=== PATIENT | female | born 1930 | race Caucasian/White ===

== ENCOUNTER 2016-08-17 09:07 | Inpatient (IN) | payer MEDICARE ==
[~2016-08-17] VITALS: Ht 160 cm; Wt 42.5 kg
[~2016-08-17 09:07] MED LIST: ALEVE 220MG220 MG PO; ARICEPT10 MG PO; ASPIRIN 81M81 MG/TA2 PO; B-12 100 MCG PO; COZAAR 50MG50 MG/TAB PO; MELATONIN1 MG PO; MICARDIS40 MG PO; MIRALAX PA17 GM/Dose PO; NAMENDA5 MG PO; SYNTHROID0.088 MG/T PO
[2016-08-17] MEDS ORDERED: ALEVE 220MG220 MG PO (09:45)
[2016-08-17] MEDS ORDERED: KEPPRA 500MG500 MG PO (09:46)
[2016-08-17] MEDS ORDERED: ASPIRIN E.C. 8181 MG PO (09:46)
[2016-08-17] MEDS ORDERED: COLACE 100100 MG/CAP PO (09:46)
[2016-08-17] MEDS ORDERED: COZAAR 50MG50 MG/TAB PO (09:47)
[2016-08-17] MEDS ORDERED: SYNTHROID0.1 MG/TAB PO (09:47)
[2016-08-17] MEDS ORDERED: NAMENDA5 MG PO (09:47)
[2016-08-17] MEDS ORDERED: PLAVIX 75MG TAB75 MG PO (09:47)
[2016-08-17] MEDS ORDERED: PROTONIX 40MG T40 MG PO (09:47)
[2016-08-17] MEDS ORDERED: MIRALAX PA17 GM/Dose PO (09:48)
[2016-08-17 09:55] LABS: MEAN CELL VOLUME 100 fl (80.0-100.0); MEAN CORPUSCULAR HGB CONC 33 g/dl (33.0-37.0); MEAN PLATELET VOLUME 10.9 fl (7.4-10.4); PLATELET COUNT 108 K/mm3 (130-400); RED BLOOD COUNT 3.32 M/mm3 (4.10-5.30); WHITE BLOOD COUNT 3.3 K/mm3 (4.8-10.8)
[2016-08-17 09:57] LABS: ADD PATHOLOGY DIFF REVIEW NO; HEMATOCRIT 33.1 % (37.0-47.0); HEMOGLOBIN 10.8 g/dl (12.5-16.0); MEAN CORPUSCULAR HEMOGLOBIN 33 pg (27.0-31.0)
[2016-08-17 09:59] LABS: INR 1.1 (0.8-3.0)
[2016-08-17 10:01] LABS: PARTIAL THROMBOPLASTIN TIME 32.4 SECONDS (26.0-37.0)
[2016-08-17 10:06] LABS: ADJUSTED CALCIUM 9.9 mg/dL (8.4-10.2); ALBUMIN 3.2 gm/dL (3.5-5.0); BILIRUBIN,TOTAL 0.8 mg/dL (0.0-1.0); CALCIUM 9.3 mg/dL (8.4-10.2); CREATININE, serum 1.2 mg/dL (0.52-1.25); POTASSIUM 4.3 mmol/L (3.4-5.0)
[2016-08-17 10:23] LABS: PH 5 (5-8); SQUAMOUS EPITHELIAL None Seen /hpf; URINE APPEARANCE Clear; URINE BACTERIA None Seen /hpf; URINE BILIRUBIN Negative (NEGATIVE); URINE BLOOD 2+ (NEGATIVE); URINE COLOR Yellow; URINE GLUCOSE Negative (NEGATIVE); URINE KETONE Trace (NEGATIVE); URINE UROBILINOGEN Negative (NEGATIVE); URINE WBC 0-2 /hpf
[2016-08-17 10:41] LABS: BAND 4 % (0-10); BASOPHIL 1 % (0-2); MYELOCYTE 1 % (0-0); NEUTROPHILS 72 % (42.0-75.2); TOTAL CELLS COUNTED 100
[2016-08-17 10:42] LABS: HYPOCHROMIA 1+; PLATELET ESTIMATE NORMAL (NORMAL)
[2016-08-17 11:32] VITALS: BP 156/89; PULSE 69; TEMP 98.3
[2016-08-17 14:04] VITALS: BP 132/57; PULSE 63; TEMP 98
[2016-08-17 17:45] VITALS: BP 126/60; PULSE 66; TEMP 98.3
[2016-08-17 22:00] VITALS: BP 131/81; PULSE 77; TEMP 98.5
[2016-08-18] VITALS (16 sets, daily range): BP systolic 98–166; BP diastolic 29–71; PULSE 56–87; TEMP 96.6–99
[2016-08-18 07:25] LABS: BASO % 0.2 % (0.0-2.0); EOS % 0.8 % (0-4.0); GRAN # 3.6 (1.4-6.5); GRAN % 72.9 % (42.2-75.2); LYMPH # 0.8 (1.2-3.4); LYMPH % 16.1 % (20.0-51.0); MEAN CELL VOLUME 100 fl (80.0-100.0); MEAN CORPUSCULAR HGB CONC 33 g/dl (33.0-37.0); MEAN PLATELET VOLUME 11.6 fl (7.4-10.4); MONO # 0.5 (0.1-0.6); MONO % 9.6 % (1.7-9.3); PLATELET COUNT 113 K/mm3 (130-400); RED BLOOD COUNT 3.06 M/mm3 (4.10-5.30)
[2016-08-18 07:35] LABS: HEMATOCRIT 30.6 % (37.0-47.0); MEAN CORPUSCULAR HEMOGLOBIN 33 pg (27.0-31.0)
[2016-08-19] VITALS (10 sets, daily range): BP systolic 95–128; BP diastolic 40–74; PULSE 63–82; TEMP 97.3–98.1
[2016-08-19 07:50] LABS: HEMOGLOBIN 6.6 g/dl (12.5-16.0)
[2016-08-20 06:13] VITALS: BP 135/66; PULSE 78; TEMP 98.5
[2016-08-20 06:19] LABS: EOS # 0.1 (0.0-0.7); EOS % 2.4 % (0-4.0); GRAN # 2.5 (1.4-6.5); GRAN % 67.5 % (42.2-75.2); LYMPH # 0.7 (1.2-3.4); LYMPH % 19.7 % (20.0-51.0); MEAN CORPUSCULAR HGB CONC 34 g/dl (33.0-37.0); MEAN PLATELET VOLUME 11.2 fl (7.4-10.4); MONO # 0.4 (0.1-0.6); MONO % 10.4 % (1.7-9.3); PLATELET COUNT 89 K/mm3 (130-400); RED BLOOD COUNT 2.19 M/mm3 (4.10-5.30); REDCELL DISTRIBUTION WIDTH-CV 14.6 % (11.5-14.5); WHITE BLOOD COUNT 3.8 K/mm3 (4.8-10.8)
[2016-08-20 06:20] LABS: HEMATOCRIT 20.8 % (37.0-47.0); HEMOGLOBIN 7.1 g/dl (12.5-16.0); MEAN CELL VOLUME 95 fl (80.0-100.0); MEAN CORPUSCULAR HEMOGLOBIN 32 pg (27.0-31.0)
[2016-08-20 06:35] LABS: CALCIUM 7.7 mg/dL (8.4-10.2); CREATININE, serum 1.28 mg/dL (0.52-1.25); POTASSIUM 3.8 mmol/L (3.4-5.0)
[2016-08-20 09:38] VITALS: BP 146/66; PULSE 72; TEMP 99
[2016-08-20 12:53] VITALS: BP 136/49; PULSE 76; TEMP 99.6
[2016-08-20 18:24] VITALS: BP 149/61; PULSE 81; TEMP 99.6
[2016-08-20 21:45] VITALS: BP 132/55; PULSE 89; TEMP 98.9
[2016-08-21 05:50] VITALS: BP 127/57; PULSE 93; TEMP 98.5
[2016-08-21 08:51] LABS: MEAN CELL VOLUME 96 fl (80.0-100.0); MEAN CORPUSCULAR HGB CONC 33 g/dl (33.0-37.0); MEAN PLATELET VOLUME 11.3 fl (7.4-10.4); PLATELET COUNT 107 K/mm3 (130-400); RED BLOOD COUNT 2.21 M/mm3 (4.10-5.30); REDCELL DISTRIBUTION WIDTH-CV 14.6 % (11.5-14.5); WHITE BLOOD COUNT 2.3 K/mm3 (4.8-10.8)
[2016-08-21 08:58] LABS: HEMATOCRIT 21.3 % (37.0-47.0); HEMOGLOBIN 7.1 g/dl (12.5-16.0); MEAN CORPUSCULAR HEMOGLOBIN 32 pg (27.0-31.0)
[2016-08-21 09:27] LABS: CREATININE, serum 1.14 mg/dL (0.52-1.25); POTASSIUM 3.7 mmol/L (3.4-5.0)
[2016-08-21] MEDS ORDERED: FERROUS SU325 MG/TAB PO (09:34)
[2016-08-21] MEDS ORDERED: SENOKOT S 50 MG1 TAB PO (09:38)
[2016-08-21] MEDS ORDERED: DULCOLAX S10 MG/SUPP RC (09:38)
[2016-08-21] MEDS ORDERED: NORCO 325 MG-51 TAB PO (09:39)
[2016-08-21 09:44] LABS: BAND 39 % (0-10); HYPOCHROMIA 2+; NEUTROPHILS 34 % (42.0-75.2); PLATELET ESTIMATE NORMAL (NORMAL); TOTAL CELLS COUNTED 100
[2016-08-21 09:45] VITALS: BP 133/59; PULSE 87; TEMP 98.9
[2016-08-21 09:45] LABS: ROULEAUX 1+
[2016-08-21] MEDS ORDERED: ASPI325T6 PO (09:48)
[2016-08-21] MEDS ORDERED: TYLENOL 325MG325 MG PO (10:51)
[2016-08-21 11:05] VITALS: BP 133/59; PULSE 87; TEMP 98.9
[2016-08-21 13:47] VITALS: BP 114/55; PULSE 84; TEMP 98.2
[2016-08-24 10:10] LABS: MAGNESIUM-RBC 4.3 mg/dL (3.5-7.1)
== END 2016-08-21 14:15 | DRG 480 ==
LOC: COL.ER 09:07 → SURG 09:36
PROVIDERS: Emergency Medicine; Internal Medicine; Nurse Practitioner Family; Orthopaedic Surgery Sports Medicine; Physician Assistant
PROC: 0QS706Z Reposition Left Upper Femur with Intramedullary Internal Fixation Device, Open Approach (ICD-10-PCS; principal; 2016-08-18 08:00)
DX: S72.142A Displaced intertrochanteric fracture of left femur, initial encounter for closed fracture (principal); E43 Unspecified severe protein-calorie malnutrition; D61.818 Other pancytopenia; D62 Acute posthemorrhagic anemia; Z68.1 Body mass index [BMI] 19.9 or less, adult; W18.30XA Fall on same level, unspecified, initial encounter; I10 Essential (primary) hypertension; F03.90 Unspecified dementia, unspecified severity, without behavioral disturbance, psychotic disturbance, mood disturbance, and anxiety
CPT/HCPCS: 99223-AI; 99232-AI; 99233-AI; 99239; A9284; C1713; J0690; J1100; J2250; J2270; J2704; J2765; J2795; J3010; J7040; J7120; P9016